=== PATIENT | male | born 1960 | race Caucasian/White ===

== ENCOUNTER 2019-01-26 07:44 | Outpatient (CLI) | payer OTHER ==
[2019-01-26] MEDS ORDERED: OMNIPAQUE 350 MG/ML, 100ML BOTTLE ONE (14:18)
== END 2019-01-26 23:59 | disposition home or self-care (01) ==
LOC: CFH 07:44
PROVIDERS: ATTEND Nurse Practitioner Family
DX: I07.1 Rheumatic tricuspid insufficiency (principal); I11.9 Hypertensive heart disease without heart failure; I25.10 Atherosclerotic heart disease of native coronary artery without angina pectoris; M41.84 Other forms of scoliosis, thoracic region
CPT/HCPCS: 0399T; 71275; 93306; Q9967